=== PATIENT | female | born 1980 | race American Indian/Alaskan Native ===

== ENCOUNTER 2017-09-18 19:43 | Observation (INO) | payer MEDICAID ==
[2017-09-18 20:12] LABS: Basophils % (Auto) 0.5 % (0.0-1.8); Eosinophils % (Auto) 0.7 % (0.0-4.3); Hematocrit 40.8 % (30.3-42.9); Lymphocytes # (Auto) 2.6 K/mm3 (1.2-5.4); Lymphocytes % (Auto) 50.9 % (13.4-35.0); Mean Corpuscular HGB Conc 32 % (30-34); Mean Corpuscular Volume 76 fl (79-97); Monocytes # (Auto) 0.5 K/mm3 (0.0-0.8); Monocytes % (Auto) 10.2 % (0.0-7.3); Platelet Count 253 K/mm3 (140-440); Red Blood Count 5.37 M/mm3 (3.65-5.03); Red Cell Distribution Width 14.8 % (13.2-15.2)
[2017-09-18 20:21] LABS: BUN/Creatinine Ratio 19; Blood Urea Nitrogen 13 mg/dL (7-17); Calcium 9.5 mg/dL (8.4-10.2); Hemolysis Index 7
[2017-09-18 20:32] LABS: Mean Corpuscular Hemoglobin 24 pg (28-32)
[2017-09-18 22:38] LABS: Bilirubin,Urine NEG (Negative); Blood,Urine NEG (Negative); Color,Urine Yellow (Yellow); Mucus,Urine 2+ /HPF; Protein,Urine <15 mg/dL mg/dL (Negative); Urobilinogen,Urine < 2.0 mg/dL (<2.0)
[2017-09-18 22:41] LABS: Amphetamine Screen,Urine PRESUMPTIVE NEGATIVE; Benzodiazepines Screen,Urine PRESUMPTIVE NEGATIVE; Cannabinoid Screen,Urine PRESUMPTIVE NEGATIVE; Cocaine Screen,Urine PRESUMPTIVE NEGATIVE; Methadone Screen,Urine PRESUMPTIVE NEGATIVE; Opiate Screen,Urine PRESUMPTIVE NEGATIVE
--- NOTE | 2017-09-18 23:21 | Emergency Department Report ---
HPI - General Chief Complaint: Psych Time Seen by Provider: 09/18/17 23:19 - HPI HPI: 37-year-old female presents to the emergency department with her sister with a complaint of suicidal ideations. She is having auditory hallucinations and these voices are telling her to kill herself. She has not gotten much sleep over the past 2 days. Sister states that she contact their mother yesterday. She is also having some non-specific visual hallucinations. She has a history of schizophrenia, bipolar disorder and some violent behavior in the past. The patient has not been on her psychiatric medication and a " long time" and they cannot remember what the medications are. The sister says that the patient just recently got out of long term. She does not have any specific plan as to how she would harm herself. ED Past Medical Hx - Past Medical History Previous Medical History?: Yes Hx Hypertension: Yes Hx Diabetes: Yes Hx Psychiatric Treatment: Yes Additional medical history: schizo and bipolar - Surgical History Past Surgical History?: No - Social History Smoking Status: Current Every Day Smoker Substance Use Type: None - Medications Home Medications: Home Medications Medication Instructions Recorded Confirmed Last Taken Type Benztropine [Cogentin] 1 mg PO BID 05/18/13 06/24/15 04/27/13 22:00 History 1 LORazepam [Ativan] 0.5 mg PO BID 05/18/13 06/24/15 04/27/13 22:00 History 0.5 Temazepam [Restoril] 30 mg PO QHS PRN 05/18/13 06/24/15 04/27/13 22:00 History 30 risperiDONE [Risperdal] 4 mg PO BID 05/18/13 06/24/15 04/27/13 22:00 History 4 ED Review of Systems ROS: Stated complaint: OFF PSYCH MEDS Other details as noted in HPI Comment: All other systems reviewed and negative Constitutional: denies: chills, fever Eyes: denies: eye pain, eye discharge, vision change ENT: denies: ear pain, throat pain Respiratory: denies: cough, shortness of breath, wheezing Cardiovascular: denies: chest pain, palpitations Gastrointestinal: denies: abdominal pain, nausea, diarrhea Genitourinary: denies: urgency, dysuria, discharge Musculoskeletal: denies: back pain, joint swelling, arthralgia Skin: denies: rash, lesions Neurological: denies: headache, weakness, paresthesias Psychiatric: auditory hallucinations, visual hallucinations, suicidal thoughts Physical Exam - Physical Exam Vital Signs: Vital Signs 09/18/17 19:47 Temperature 99 F Pulse Rate 103 H Respiratory 18 Rate Blood Pressure 123/71 O2 Sat by Pulse 98 Oximetry Physical Exam: GENERAL: The patient is well-developed well-nourished. HENT: Normocephalic. Atraumatic. Patient has moist mucous membranes. EYES: Extraocular motions are intact. Pupils equal reactive to light bilaterally. NECK: Supple. Trachea is midline. CHEST/LUNGS: Clear to auscultation. There is no respiratory distress noted. HEART/CARDIOVASCULAR: Regular. There is no tachycardia. There is no murmur. ABDOMEN: Abdomen is soft, nontender. Patient has normal bowel sounds. There is no abdominal distention. SKIN: Skin is warm and dry. NEURO: The patient is awake, alert, and oriented. The patient is cooperative. The patient has no focal neurologic deficits. The patient has normal speech and gait. MUSCULOSKELETAL: There is no tenderness or deformity. There is no limitation range of motion. There is no evidence of acute injury. ED Course Vital Signs 09/18/17 19:47 Temperature 99 F Pulse Rate 103 H Respiratory 18 Rate Blood Pressure 123/71 O2 Sat by Pulse 98 Oximetry ED Medical Decision Making - Lab Data Result diagrams: 09/18/17 19:57 09/18/17 19:57 - Medical Decision Making Patient has a history of schizophrenia and bipolar disorder and some history of violent outbursts. She admits to suicidal ideations and auditory hallucinations that tell her to harm herself. For this reason she has been made a 1013. Labs have been mostly unremarkable. Vital signs stable throughout her ED course. She is medically cleared for psychiatric placement. - Differential Diagnosis schizophrenia, bipolar disorder, substance abuse, schizoaffective Critical Care Time: No Critical care attestation.: If time is entered above; I have spent that time in minutes in the direct care of this critically ill patient, excluding procedure time. ED Disposition Clinical Impression: History of schizophrenia, Suicidal ideations, Hallucinations Disposition: [id number]/TX-[id number] PSY HOSP/PSY UNIT Is pt being admited?: No Condition: Stable Referrals: PRIMARY CARE [Primary Care Provider] - 3-5 Days Time of Disposition: 00:01
[2017-09-19 09:15] VITALS: BP 113/64
--- NOTE | 2017-09-19 11:55 | Consultation ---
History of Present Illness - Reason for Consult Consult date: 09/19/17 Reason for consult: Mental Health Evaluation Requesting physician: JESSIE GOLDSTEIN - Chief Complaint Chief complaint: "I don't know" - History of Present Psychiatric Illness 37 y.o AA female presenting to [facility] for SI's and AH's. Today the patient is calm , but disorganized and tangent during the assessment. She had to be redirected several time to keep her on topic. She did state that voices are loud in her ear telling her to kill herself. She denies being suicidal, but stated, "The voices are messing with me." She could elaborate why she was brought to the ER when asked. The patient was able to tell me that she takes Haldol, but most of her answers to questions were not logical. She denies SI/HI's and VH's. Medications and Allergies Allergies Allergy/AdvReac Type Severity Reaction Status Date / Time No Known Allergies Allergy Verified 06/24/15 10:23 Home Medications Medication Instructions Recorded Confirmed Last Taken Type Benztropine [Cogentin] 1 mg PO BID 05/18/13 06/24/15 04/27/13 22:00 History 1 LORazepam [Ativan] 0.5 mg PO BID 05/18/13 06/24/15 04/27/13 22:00 History 0.5 Temazepam [Restoril] 30 mg PO QHS PRN 05/18/13 06/24/15 04/27/13 22:00 History 30 risperiDONE [Risperdal] 4 mg PO BID 05/18/13 06/24/15 04/27/13 22:00 History 4 Past psychiatric history - Past Medical History Past Medical History: diabetes, hypertension Past Surgical History: No surgical history - past Psychiatric treatment and history psychiatric treatment history: Per the patient she seen by a psychiatrist. The patient cannot confirm or deny a fam psy hx. - Social History Social history: lives with family Mental Status Exam - Vital signs Last Vital Signs Temp 98 F 09/19/17 09:13 Pulse 71 09/19/17 09:13 Resp 16 09/19/17 09:15 BP 113/64 09/19/17 09:13 Pulse Ox 98 09/19/17 09:15 - Exam Narrative exam: MSE: Appearance: calm, disheveled, malodorous Behavior: regular eye contact Speech: regular rate and tone Mood: "okay" Affect: flat Thought Process: tangential, disorganized Thought Content: denies SI/HI's and VH's Motor Activity: lying in bed Cognition: A/O x 3 Insight: poor Judgment: poor Results Result Diagrams: 09/18/17 19:57 09/18/17 19:57 Abnormal lab results 09/18/17 09/18/17 09/18/17 Range/Units 19:57 19:57 19:57 RBC (3.65-5.03) M/mm3 MCV (79-97) fl MCH (28-32) pg Lymph % (Auto) (13.4-35.0) % [place] % (Auto) (0.0-7.3) % Seg Neutrophils % (40.0-70.0) % Glucose 108 H (65-100) mg/dL Ur Specific [place] [facility] (1.003-1.030) Salicylates < 0.3 L (2.8-20.0) mg/dL Acetaminophen < 5.0 L (10.0-30.0) ug/mL 09/18/17 09/18/17 Range/Units 19:57 Unknown RBC 5.37 H (3.65-5.03) M/mm3 MCV 76 L (79-97) fl MCH 24 L (28-32) pg Lymph % (Auto) 50.9 H (13.4-35.0) % [place] % (Auto) 10.2 H (0.0-7.3) % Seg Neutrophils % 37.7 L (40.0-70.0) % Glucose (65-100) mg/dL Ur Specific [place] 1.035 H (1.003-1.030) Salicylates (2.8-20.0) mg/dL Acetaminophen (10.0-30.0) ug/mL All other labs normal. Assessment and Plan Assessment and plan: Impression: Unspecified Psychosis. Today the patient is calm, but disorganized and tangent during the assessment. DDx: R/O Bipolar DO, Schizophrenia, R/O Schizoaffective DO Recommendation/Plan: Continue 1013 with placement to [facility] today. Start Haldol 5 mg PO HS for psychosis. Attempted to discuss possible EPS side effects with patient.
[2017-09-19] MEDS ORDERED: HALDOL PO SCH (22:00)
== END 2017-09-19 17:17 ==
LOC: ED 19:43 → EEVIPCON 19:43 → PSYOBV 09-19 12:05 → INTOOBSV 09-19 12:05 → PSYOBV 09-19 12:13
PROVIDERS: ADMIT Internal Medicine; ATTEND Internal Medicine
DX: R45.851 Suicidal ideations (principal); R44.3 Hallucinations, unspecified; F20.9 Schizophrenia, unspecified; I10 Essential (primary) hypertension; E11.9 Type 2 diabetes mellitus without complications; F31.9 Bipolar disorder, unspecified; F17.200 Nicotine dependence, unspecified, uncomplicated
CPT/HCPCS: 36415; 80048; 80307; 81001; 84703; 85025; 99285; G0378; G0480; 80320

== ENCOUNTER 2020-03-15 01:48 | Emergency (ER) | payer MEDICAID ==
[2020-03-15] MEDS ORDERED: levETIRAcetam 1000 MG/NS 0.75% 1,000 MG/100 ML BAG IV ONE (04:43)
== END 2020-03-16 07:00 | disposition home or self-care (01) ==
LOC: ED 01:48
DX: M79.10 Myalgia, unspecified site (principal); Z53.21 Procedure and treatment not carried out due to patient leaving prior to being seen by health care provider
CPT/HCPCS: J1953

== ENCOUNTER 2020-10-05 20:05 | Emergency (ER) | payer MEDICAID | END 2020-10-05 22:30 | disposition left against medical advice (07) | LOC: ED 20:05 ==